=== PATIENT | female | born 1985 | race African-American/Black ===

== ENCOUNTER 2023-05-11 06:05 | Day surgery (SDC) | payer OTHER, SELFPAY ==
[2023-05-04 10:19] VITALS: BMI 34.5
--- NOTE | 2023-05-10 08:22 | WPDANESEPPF ---
Anes - Initial Pre Proc Eval Procedure: Operation Date: 05/11/23 08:45 Proposed Procedures p Partial Plantar Fasciectomy Left Foot - Ang Valentine JR, MD Date/Time: 05/10/23 08:22 Surgeon: Ang Valentine JR, MD Pre Op Diagnosis: Plantar Fasciitis Left Foot Patient Data Age: 38 Gender: F Height: 1.6 m Weight: 88.5 kg Allergies Allergy/AdvReac Type Severity Reaction Status Date / Time No Known Allergies Allergy Unknown Verified 05/11/23 07:21 Home Medications Medication Instructions Recorded Confirmed Type multivitamin with minerals-folic 1 tablet PO DAILY 05/04/23 05/11/23 History acid 0.4 mg tablet spironolactone 50 mg tablet 100 mg PO DAILY 05/04/23 05/11/23 History Patient hx anesthesia problems: none Family hx anesthesia problems: none Results Review: All pre-operative results and documents have been reviewed as part of the pre-operative evaluation. [facility], [facility] Social History Social History Smoking status: Never smoker Second hand tobacco smoke exposure: Yes Alcohol intake: current Alcohol use details: socially Substance use type: does not use Living arrangements: alone Spiritual care concerns: No Anes - Eval Final PreProcedure Day of Procedure 05/10/23 08:22 Patient weight: obese Heart: regular rate and rhythm Lungs: clear to auscultation Airway: Mallampati scale class II Neurological: alert and oriented Last oral intake: >/= 8 hours ASA classification: II Emergent: no Anesthetic plan: proceed Anesthesia type and monitoring: general GIVS and standard monitoring Results Review: All pre-operative results and documents have been reviewed as part of the pre-operative evaluation. Informed Consent: The patient's anesthetic plan and its attendant risks and benefits were discussed with the patient/family/POA. Questions were solicited and answers provided to the satisfaction of the patient/family/POA.
[2023-05-11] VITALS (8 sets, daily range): BP systolic 103–132; BP diastolic 71–95; PULSE 72–99; RESP 16–22; TEMP 35.8–36.5; O2SAT 100
--- NOTE | 2023-05-11 07:14 | WPDHPUPDATE1 ---
History and Physical Update Update Date/Time: 05/11/23 07:14 History and Physical has been reviewed, including an updated exam of the patient. There are NO changes in the patient's condition. Risks, benefits, and alternatives have been discussed and questions answered. Patient agrees to proceed with procedure.
[2023-05-11] MEDS: LACTATED RINGERS 1,000 ML 30 ML IV CONT ×2 (07:52→09:21)
[2023-05-11] MEDS: ceFAZolin SODIUM 2 GM/20 ML SW SYRINGE IV PUSH (08:30)
[2023-05-11] MEDS: BUPivacaine HCL 0.5% 10 ML AMP INFILTRATE (08:44)
[2023-05-11] MEDS: LIDOCAINE HCL 2% LOCAL INJ 20 ML VIAL 10 ML INFILTRATE (08:44)
--- NOTE | 2023-05-11 09:21 | W.PM.PROC2 ---
Procedure Note - Detailed Date of Procedure 05/11/23 Pre-op Diagnosis Plantar Fasciitis Left Foot Post-op Diagnosis Same Procedure Performed Partial plantar fasciectomy left foot Surgeon Ang Valentine JR, MIGDALIAM Anesthesia General and Local Indications Recalcitrant left heel pain Findings Narrow origin of plantar fascia Description of Procedure Under mild sedation, the patient was brought in to the operating room, placed on the operating table in the supine position. A pneumatic ankle tourniquet was placed about the patient's ankle. Following general anesthesia, local anesthesia was obtained about the affected lower extremity utilizing 20 mL of a one to mix of 2% Lidocaine plain and 0.5% Marcaine plain to the tibial nerve. The foot was then scrubbed, prepped, and draped in the usual aseptic manner. An Esmarch bandage was then used to exsanguinate the patient's foot and the pneumatic ankle tourniquet was then inflated. Next, an incision was made starting distal to the medial tubercle of the calcaneus extending distally 3cm. All bleeders were cauterized as necessary. Next the dissection was continued down to the plantar fascia it was exposed medially and laterally with [employer] [place] retractors. Two thirds of the medial plantar fascia was transected and a 4mm portion was also cut and discarded. The wound site was flushed with sterile saline. The deep subcutaneous tissue was reapproximated with 3.0 Vicryl and the skin was reapproximated with 2.0 Prolene and 3.0 Prolene in Vertical mattress and Simple interrupted suture technique. Upon completion of the procedure, the plantar incision was dressed with adaptic, 4x4 gauze, kerlix and coban. The pneumatic ankle tourniquet was then deflated and a prompt hyperemic response was noted to all digits of the affected foot. A CAM Walker boot was then applied. The patient did very well with the procedure and the anesthesia. The patient was transferred to the recovery room with vital signs stable and vascular status intact to all toes of the affected foot. Following a period of postoperative monitoring, the patient will be discharged home on the following written and oral postoperative instructions: 1. The patient should keep the dressing clean, dry, and intact. Use a cast protector bag with showers. 2. The patient will be strictly protected weight bearing with CAM walker boot. 3. Patient should ice and elevate the affected foot when at rest. 4. The patient is to contact Dr. Valentine for all postop care and if any problems arise. 5. Prescriptions were written for Percocet 5/325 dispensed 40 to be taken 1 p.o. q.4-6 hours as needed for severe pain. Estimated Blood Loss 1 Drains No Packing No Pathology None sent Complications No immediate complications Condition Stable Disposition Same day
--- NOTE | 2023-05-11 10:04 | WPDANESPN ---
Anes - Prog Note Post-Op Date/Time: 05/11/23 10:04 Cardiovascular status: normal Respiratory status: normal Airway patency: baseline Mental status: baseline Post-Op hydration status: normal Vital Signs: Last Vital Signs Temp 36.5 C 05/11/23 09:51 Pulse 76 05/11/23 09:51 Resp 16 05/11/23 09:51 BP 103/71 05/11/23 09:51 Pulse Ox 100 05/11/23 09:51 O2 Del Method Room Air 05/11/23 09:51 O2 Flow Rate 6 05/11/23 09:36 Pain Score (VAS): 1 I/O: Intake & Output 05/10/23 05/11/23 05/11/23 23:59 07:59 15:59 Intake Total 100 Balance 100 Post-procedural complaints: none Patient Feedback: Patient satisfied with anesthetic care. Other Findings: Patient vital signs back to baseline. Patient denies nausea and vomiting. Patient's pain under control. Patient OK for discharge.
== END 2023-05-11 10:44 | disposition home or self-care (01) ==
PROVIDERS: PCP Family Medicine; Visit Provider Podiatrist Foot & Ankle Surgery
PROC: (CPT 28119; principal; 2023-05-11 08:45)
DX: M72.2 Plantar fascial fibromatosis (principal)
CPT/HCPCS: 28060